=== PATIENT | female | born 1930 | race Caucasian/White ===

== ENCOUNTER → 2018-11-13 | Outpatient (CLI) | payer OTHER ==
[~2018-11-13] MED LIST: ALPR.25 PO; AMLO5 PO; ATEN100 PO; Bactrim Ds Tab1 EACH PO; CEFP200 PO; CIPR500 PO; LISI20 PO; OMEP20ER PO; POTCHL10ER PO; TERB250 PO
== END | disposition home or self-care (01) ==
LOC: LAB SHORT 13:21 → LAB 13:21
DX: R35.0 Frequency of micturition (principal)
CPT/HCPCS: 87077; 87086; 87186

== ENCOUNTER 2019-04-05 13:51 | Emergency (ER) | payer OTHER ==
[~2019-04-05] VITALS: Ht 157.5 cm; Wt 45.4 kg
[2019-04-05 15:04] LABS: BASOPHILS ABSOLUTE AUTO 0.06 K/mm3 (0.00-0.23); BASOPHILS PERCENT AUTO 1 % (0-2); EOSINOPHILS ABSOLUTE AUTO 0.13 K/mm3 (0.00-0.68); EOSINOPHILS PERCENT AUTO 2 % (0-6); Hemoglobin 12.6 g/dL (11.5-16.0); IMMATURE GRAN ABSOLUTE AUTO 0.04 K/mm3 (0.00-0.10); IMMATURE GRAN PERCENT AUTO 1 % (0-1); LYMPHOCYTES ABSOLUTE AUTO 1.48 K/mm3 (0.84-5.20); LYMPHOCYTES PERCENT AUTO 18 % (21-46); MONOCYTES ABSOLUTE AUTO 0.94 K/mm3 (0.16-1.47); MONOCYTES PERCENT AUTO 12 % (4-13); Mean Corpuscular HGB 31.1 pg (26.0-34.0); Mean Corpuscular HGB Conc 32.3 g/dL (31.5-36.5); Mean Corpuscular Volume 96 fL (80-100); Mean Platelet Volume 9.8 fL (9.1-12.4); NEUTROPHILS PERCENT AUTO 68 % (41-73); Platelet Count 348 K/mm3 (150-400); RDW Coefficient Variation 12.8 % (11.7-14.2); RDW Standard Deviation 45.2 fL (35.1-46.3); Red Blood Cell Count 4.05 M/mm3 (3.80-5.20); White Blood Cell Count 8.15 K/mm3 (4.00-11.30)
[2019-04-05 15:22] LABS: Albumin, Blood 3.4 g/dL (3.4-5.0); Albumin/Globulin Ratio 0.8 (0.8-1.8); Bilirubin, Total 0.2 mg/dL (0.1-1.0); Bun/Creatinine Ratio 19.8 (12.0-20.0); Calcium, Blood 8.8 mg/dL (8.5-10.1); Creatinine, Blood 0.96 mg/dL (0.40-1.00); Globulin, Blood 4.3 g/dL (2.2-4.0); Potassium, Blood 3.9 mmol/L (3.5-5.5); Total Protein, Blood 7.7 g/dL (6.4-8.2)
== END 2019-04-05 16:50 | disposition home or self-care (01) ==
LOC: ER 13:51
PROVIDERS: Physician Assistant
DX: K92.1 Melena (principal); R18.8 Other ascites; K62.89 Other specified diseases of anus and rectum; I10 Essential (primary) hypertension; Z88.5 Allergy status to narcotic agent; Z79.899 Other long term (current) drug therapy
CPT/HCPCS: 36415; 80053; 82272; 85025; 86850; 86900; 86901; 99283

== ENCOUNTER → 2020-02-11 | Outpatient (CLI) | payer OTHER ==
[2020-02-11 14:26] LABS: BASOPHILS ABSOLUTE AUTO 0.07 K/mm3 (0.00-0.23); BASOPHILS PERCENT AUTO 0 % (0-2); EOSINOPHILS ABSOLUTE AUTO 0.08 K/mm3 (0.00-0.68); EOSINOPHILS PERCENT AUTO 1 % (0-6); Hematocrit 34.8 % (33.0-51.0); Hemoglobin 11.5 g/dL (11.5-16.0); IMMATURE GRAN ABSOLUTE AUTO 0.08 K/mm3 (0.00-0.10); IMMATURE GRAN PERCENT AUTO 1 % (0-1); LYMPHOCYTES ABSOLUTE AUTO 1.62 K/mm3 (0.84-5.20); LYMPHOCYTES PERCENT AUTO 10 % (21-46); MONOCYTES ABSOLUTE AUTO 1.33 K/mm3 (0.16-1.47); MONOCYTES PERCENT AUTO 8 % (4-13); Mean Corpuscular HGB 31.6 pg (26.0-34.0); Mean Corpuscular Volume 96 fL (80-100); Mean Platelet Volume 9.8 fL (9.1-12.4); NEUTROPHILS ABSOLUTE AUTO 13.95 K/mm3 (1.96-9.15); NEUTROPHILS PERCENT AUTO 81 % (41-73); Platelet Count 327 K/mm3 (150-400); RDW Coefficient Variation 13.3 % (11.7-14.2); RDW Standard Deviation 46.9 fL (35.1-46.3); Red Blood Cell Count 3.64 M/mm3 (3.80-5.20); White Blood Cell Count 17.13 K/mm3 (4.00-11.30)
[2020-02-11 14:37] LABS: Albumin, Blood 3.1 g/dL (3.4-5.0); Albumin/Globulin Ratio 0.7 (0.8-1.8); Bilirubin, Total 0.5 mg/dL (0.1-1.0); Bun/Creatinine Ratio 14.2 (12.0-20.0); Calcium, Blood 9.3 mg/dL (8.5-10.1); Creatinine, Blood 1.34 mg/dL (0.40-1.00); Globulin, Blood 4.7 g/dL (2.2-4.0); Potassium, Blood 3.4 mmol/L (3.5-5.5); Total Protein, Blood 7.8 g/dL (6.4-8.2)
== END | disposition home or self-care (01) ==
LOC: LAB SHORT 14:23 → LAB EV 14:23
PROVIDERS: Physician Assistant Medical
DX: K92.1 Melena (principal)
CPT/HCPCS: 80053; 85025

== ENCOUNTER → 2020-03-16 | Outpatient (CLI) | payer OTHER ==
[2020-03-18 11:00] LABS: Stool Occult Bld Immuno 1 Positive (NEGATIVE)
== END | disposition home or self-care (01) ==
LOC: LAB 14:00 → LAB SHORT 14:00
PROVIDERS: Family Medicine
DX: D64.9 Anemia, unspecified (principal)
CPT/HCPCS: 82274

== ENCOUNTER 2020-04-18 14:33 | Observation (INO) | payer OTHER ==
[~2020-04-18] VITALS: Ht 154.9 cm; Wt 43.2 kg
[2020-04-18 15:10] LABS: BASOPHILS ABSOLUTE AUTO 0.07 K/mm3 (0.00-0.23); BASOPHILS PERCENT AUTO 1 % (0-2); EOSINOPHILS ABSOLUTE AUTO 0.22 K/mm3 (0.00-0.68); EOSINOPHILS PERCENT AUTO 2 % (0-6); Hematocrit 38.6 % (33.0-51.0); Hemoglobin 12.7 g/dL (11.5-16.0); IMMATURE GRAN ABSOLUTE AUTO 0.04 K/mm3 (0.00-0.10); IMMATURE GRAN PERCENT AUTO 0 % (0-1); LYMPHOCYTES ABSOLUTE AUTO 1.63 K/mm3 (0.84-5.20); LYMPHOCYTES PERCENT AUTO 15 % (21-46); MONOCYTES ABSOLUTE AUTO 1.12 K/mm3 (0.16-1.47); MONOCYTES PERCENT AUTO 10 % (4-13); Mean Corpuscular HGB 31.1 pg (26.0-34.0); Mean Corpuscular HGB Conc 32.9 g/dL (31.5-36.5); Mean Corpuscular Volume 94 fL (80-100); Mean Platelet Volume 9.8 fL (9.1-12.4); NEUTROPHILS ABSOLUTE AUTO 8.05 K/mm3 (1.96-9.15); NEUTROPHILS PERCENT AUTO 72 % (41-73); Platelet Count 338 K/mm3 (150-400); RDW Coefficient Variation 12.4 % (11.7-14.2); RDW Standard Deviation 43.3 fL (35.1-46.3); Red Blood Cell Count 4.09 M/mm3 (3.80-5.20); White Blood Cell Count 11.13 K/mm3 (4.00-11.30)
[2020-04-18 15:15] LABS: Source, Urine Catheter
[2020-04-18 15:20] LABS: Albumin, Blood 3.2 g/dL (3.4-5.0); Albumin/Globulin Ratio 0.7 (0.8-1.8); Bilirubin, Total 0.3 mg/dL (0.1-1.0); Bun/Creatinine Ratio 11.4 (12.0-20.0); Calcium, Blood 9.1 mg/dL (8.5-10.1); Creatinine, Blood 1.05 mg/dL (0.40-1.00); Globulin, Blood 4.4 g/dL (2.2-4.0); Potassium, Blood 3.2 mmol/L (3.5-5.5); Total Protein, Blood 7.6 g/dL (6.4-8.2)
[2020-04-18 15:27] LABS: Appearance, Urine Hazy (Clear); Bilirubin, Urine Neg (Neg); Blood, Urine 5+ (Neg); Color, Urine Yellow (P-Yellow); Glucose Qualitative, Urine Neg (Neg); Ketones, Urine Neg (Neg); Leukocyte Esterase, Urine 3+ (Neg); Nitrite, Urine Pos (Neg); Protein, Urine 3+ (Neg); Urobilinogen, Urine NORM (Normal)
[2020-04-18 15:38] LABS: Bacteria Many /hpf; Squamous Epithelial Cells Few /hpf (Few); White Blood Cells, Urine TNTC /hpf (0-5)
[2020-04-18] MEDS ORDERED: CEFD300 PO (16:23)
[2020-04-18 23:32] LABS: Hematocrit 37.1 % (33.0-51.0); Hemoglobin 12.3 g/dL (11.5-16.0)
--- NOTE | 2020-04-19 01:37 | NUR ---
PATIENT ARRIVED TO ROOM 306 AT 2200. SHE IS ALERT AND ORIENTED TO SELF, AND FAMILY. WAS ABLE TO TRANSFER FROM STRETCHER TO BED WITH MINIMAL ASSISTANCE. THE PATIENT HAS RECENTLY BECOME AGITATED THAT HER IS NOT WITH HER AND REFUSES TO SETTLE DOWN UNLESS SHE EITHER GETS TO SEE HIM OR TALK TO HIM ON THE PHONE. PATIENT HAS BEEN GETTING OUT OF BED AND PULLED OUT HER IV. NEW IV PLACED AND PATIENT MEDICATED WITH ATIVAN TO HELP WITH AGITATION. WILL CONTINUE TO MONITOR.
--- NOTE | 2020-04-19 02:53 | NUR ---
PHYSICIAN COMMUNICATION CONTACTED EXTRUSION FORMER PHYSICIAN, DR GARCIA, TO NOTIFY HIM THAT THE PATIENT HAD AN ORDER FOR 0.5-1 MG IV ATIVAN PRN Q10 MINUTES AND TO SEE HOW OFTEN HE WANTED IT TO BE GIVEN ON THE MEDICAL FLOOR. DR GARCIA SAID TO CANCEL THE ORDER.
--- NOTE | 2020-04-19 06:14 | NUR ---
SHIFT SUMMARY PATIENT VERY CONFUSED AND ORIENTED ONLY TO SELF AND FAMILY. SHE ALTERNATED BETWEEN BEING PLEASANT AND AGITATED OVER NOT KNOWING WHERE HER WAS. AFTER BEING MEDICATED WITH ATIVAN, THE PATIENT WAS ABLE TO CALM DOWN AND GET TO SLEEP. IV PATENT AND INFUSING WITH NORMAL SALINE AT 75 ML/HR. BED IN LOWEST POSITION WITH WHEELS LOCKED AND ALARM ON. CALL LIGHT WITHIN REACH. REPORT GIVEN TO ONCOMING RN.
[2020-04-19 08:03] LABS: BASOPHILS ABSOLUTE AUTO 0.07 K/mm3 (0.00-0.23); BASOPHILS PERCENT AUTO 1 % (0-2); EOSINOPHILS ABSOLUTE AUTO 0.14 K/mm3 (0.00-0.68); EOSINOPHILS PERCENT AUTO 1 % (0-6); Hematocrit 31.8 % (33.0-51.0); Hemoglobin 10.4 g/dL (11.5-16.0); IMMATURE GRAN ABSOLUTE AUTO 0.03 K/mm3 (0.00-0.10); IMMATURE GRAN PERCENT AUTO 0 % (0-1); LYMPHOCYTES ABSOLUTE AUTO 1.78 K/mm3 (0.84-5.20); LYMPHOCYTES PERCENT AUTO 16 % (21-46); MONOCYTES ABSOLUTE AUTO 1.26 K/mm3 (0.16-1.47); MONOCYTES PERCENT AUTO 12 % (4-13); Mean Corpuscular HGB 30.8 pg (26.0-34.0); Mean Corpuscular HGB Conc 32.7 g/dL (31.5-36.5); Mean Corpuscular Volume 94 fL (80-100); Mean Platelet Volume 9.4 fL (9.1-12.4); NEUTROPHILS ABSOLUTE AUTO 7.56 K/mm3 (1.96-9.15); NEUTROPHILS PERCENT AUTO 70 % (41-73); Platelet Count 270 K/mm3 (150-400); RDW Coefficient Variation 12.5 % (11.7-14.2); RDW Standard Deviation 43.2 fL (35.1-46.3); Red Blood Cell Count 3.38 M/mm3 (3.80-5.20); White Blood Cell Count 10.84 K/mm3 (4.00-11.30)
[2020-04-19 08:22] LABS: Albumin, Blood 2.7 g/dL (3.4-5.0); Albumin/Globulin Ratio 0.8 (0.8-1.8); Bilirubin, Total 0.4 mg/dL (0.1-1.0); Bun/Creatinine Ratio 12.6 (12.0-20.0); Calcium, Blood 8.4 mg/dL (8.5-10.1); Creatinine, Blood 0.95 mg/dL (0.40-1.00); Globulin, Blood 3.6 g/dL (2.2-4.0); Potassium, Blood 3.6 mmol/L (3.5-5.5); Total Protein, Blood 6.3 g/dL (6.4-8.2)
[2020-04-19 15:53] LABS: Hematocrit 33.6 % (33.0-51.0); Hemoglobin 11.3 g/dL (11.5-16.0)
--- NOTE | 2020-04-19 16:51 | NUR ---
PATIENT A/O TO SELF AND FAMILY ONLY. VERY ANXIOUS TODAY ABOUT BEING HERE. GI DR TAYLOR CONSULTING AND PATIENT WILL HAVE A COLONOSCOPY TOMORROW DUE TO RECURRENT GI BLEED. PATIENT DID NOT HAVE ANY BLEEDING THIS SHIFT. VSS, ON RA. UP WITH FWW AND [address] ASSIST. F[address] PRECAUTIONS IN PLACE. SKIN INTACT. INCONTINENT OF URINE. DENIES ANY ABDOMINAL PAIN OR NAUSEA, TOLERATING CLEAR LIQUID DIET. DR. TAYLOR TO PLACE FURTHER ORDERS RELATING TO PREP FOR COLONOSCOPY TOMORROW.
[2020-04-19 23:14] LABS: Hematocrit 39.6 % (33.0-51.0); Hemoglobin 12.9 g/dL (11.5-16.0)
[2020-04-19 23:28] LABS: Influenza A, PCR Negative (NEGATIVE); Influenza B, PCR Negative (NEGATIVE); Resp Syncytial Virus, PCR Negative (NEGATIVE); SARS-Cov-2 (COVID-19) PCR, MMC Negative (NEGATIVE)
--- NOTE | 2020-04-20 04:41 | NUR ---
CHARRER SUMMARY A/O TO SELF AND FAMILY ONLY. PT HAS BEEN CALLING OUT FOR HER MOST OF THE NIGHT. SUPREP BOWEL TX COMPLETED THIS SHIFT WITH MULTIPLE EPISODES OF INCONTINENT LOOSE STOOLS. PT TO RECIEVE COLONOSCOPY THIS AM, CURRENTLY NPO EXCEPT FOR WATER. DENIES PAIN OR SOB. NO ACUTE CHANGES AT THIS TIME. BED IN LOWEST POSITION WITH CALL LIGHT IN REACH. WILL CONTINUE TO MONITOR AND REPORT TO ONCOMING RN.
--- NOTE | 2020-04-20 15:56 | NUR ---
04/20/20 1556 Ji Stratton History, Chart, Medications and Allergies reviewed before start of procedure.MONITOR INTACT WITH CONTINUOUS PULSE OXIMETRY AND INTERMITTENT BP.3-LEAD EKG REVIEWED WITH PHYSICIAN PRIOR TO START OF PROCEDURE.O2 VIA N/C INTACT THROUGHOUT SEDATION/PROCEDURE. PATIENT DETERMINED TO BE ASA APPROPRIATE FOR PROPOFOL SEDATION PRIOR TO START OF PROCEDURE BY DR. TAYLOR.
--- NOTE | 2020-04-20 15:58 | NUR ---
Patient states colon prep results clear. History, Chart, Medications and Allergies reviewed before start of procedure. Patient confirms NPO status and agrees with scheduled surgery. Pre-Op teaching done. Pt verbalizes understanding. Hx dementia, pt talkative, anxious.
--- NOTE | 2020-04-20 17:51 | NUR ---
PATIENT BACK TO ROOM FROM COLONOSCOPY. VSS, ON RA. PATIENT IS AWAKE AND TALKING TO STAFF. CARDIAC DIET ORDERED. FALL PRECAUTIONS IN PLACE.
--- NOTE | 2020-04-21 05:00 | NUR ---
PT AWOKE VERY CONFUSED, ANXIOUS AND IMPULSIVE AGAIN. SHE WAS FOUND TO HAVE DC'D HER OWN IV. STAFF ATTEMPTING TO CALM PT AND THEN WILL REPLACE IV IF ABLE FOR 0900 IV ABX.
--- NOTE | 2020-04-21 06:20 | NUR ---
SUMMARY: PT ORIENTED TO SELF AND FAMILY ONLY. SHE'S VERY [place], FORGETFUL, IMPULSIVE AND ANXIOUS WHEN AWAKE. SHE IS DIFFICULT TO REDIRECT AND DOESN'T REORIENT DESPITE REMINDERS. BED ALARM ON FOR FALL RISK. XANAX RECIEVED AT HS WHICH HELPED CALM PT AND PROMOTE SLEEP/REST BUT SHE AWOKE AGAIN THIS AM AGGITATED AND PULLED HER OWN IV OUT. PT HASN'T ALLOWED STAFF TO REPLACE IT AT THIS TIME DESPITE ENCOURAGEMENT AND DOESN'T COMPREHEND NEED FOR IV FOR ABX/MEDS. WILL ENSURE DAY STAFF IS AWARE. SHE'S DENIED PAIN/COMPLAINTS. ATTENDS CHANGED PRN FOR INCONTINENCE. PT IS SBA OOB W/FWW BUT REPOSITIONS SELF IN BED. NO EVIDENCE GI BLEEDING BUT PT DIDN'T HAVE BM THIS SHIFT. NO ACUTE CHANGES, VSS/AFEBRILE. WCTM AND REPORT TO DAY RN.
[2020-04-21 06:33] LABS: BASOPHILS ABSOLUTE AUTO 0.07 K/mm3 (0.00-0.23); BASOPHILS PERCENT AUTO 1 % (0-2); EOSINOPHILS ABSOLUTE AUTO 0.24 K/mm3 (0.00-0.68); EOSINOPHILS PERCENT AUTO 2 % (0-6); Hematocrit 33.2 % (33.0-51.0); Hemoglobin 10.9 g/dL (11.5-16.0); IMMATURE GRAN PERCENT AUTO 1 % (0-1); LYMPHOCYTES ABSOLUTE AUTO 2.02 K/mm3 (0.84-5.20); LYMPHOCYTES PERCENT AUTO 19 % (21-46); MONOCYTES ABSOLUTE AUTO 1.06 K/mm3 (0.16-1.47); MONOCYTES PERCENT AUTO 10 % (4-13); Mean Corpuscular HGB Conc 32.8 g/dL (31.5-36.5); Mean Corpuscular Volume 94 fL (80-100); Mean Platelet Volume 9.7 fL (9.1-12.4); NEUTROPHILS ABSOLUTE AUTO 7.42 K/mm3 (1.96-9.15); NEUTROPHILS PERCENT AUTO 68 % (41-73); Platelet Count 299 K/mm3 (150-400); RDW Coefficient Variation 12.5 % (11.7-14.2); RDW Standard Deviation 43.1 fL (35.1-46.3); Red Blood Cell Count 3.52 M/mm3 (3.80-5.20); White Blood Cell Count 10.91 K/mm3 (4.00-11.30)
[2020-04-21 06:57] LABS: Alanine Aminotransfer (ALT/SGP 9 U/L (12-78); Albumin, Blood 2.8 g/dL (3.4-5.0); Albumin/Globulin Ratio 0.7 (0.8-1.8); Alk Phos 72 U/L (50-136); Anion Gap 7 mmol/L (6-16); Aspartate Aminotrans (AST/SGOT 17 U/L (12-37); Bilirubin, Total 0.5 mg/dL (0.1-1.0); Blood Urea Nitrogen 15 mg/dL (8-24); Bun/Creatinine Ratio 16.3 (12.0-20.0); CO2, Blood 24 mmol/L (21-32); Calcium, Blood 9.2 mg/dL (8.5-10.1); Chloride, Blood 110 mmol/L (98-108); Creatinine, Blood 0.92 mg/dL (0.40-1.00); Globulin, Blood 4.1 g/dL (2.2-4.0); Glomerular Filtration Rate >60 (60-); Glucose, Blood 116 mg/dL (70-99); Potassium, Blood 3.1 mmol/L (3.5-5.5); Sodium, Blood 141 mmol/L (136-145); Total Protein, Blood 6.9 g/dL (6.4-8.2)
[2020-04-21] MEDS ORDERED: CEFD300 PO (14:18)
[2020-04-21] MEDS ORDERED: MIRALAX17 GM PO (14:19)
--- NOTE | 2020-04-21 14:46 | NUR ---
NOTED POTASSIUM 3.1, CALLED DR NAVAS, HE ORDERED OT DOSE 40MEQ POTASSIUM PRIOR TO DISCHARGE
--- NOTE | 2020-04-21 15:34 | NUR ---
DISCHARGE SUMMARY KEENAN HAD LOW POTASSIUM THIS MORNING OF 3.1, DR NAVAS GAVE VERBAL ORDER FOR 40MEQ PO KCL PRIOR TO DC. PT INCONTINENT IN BRIEF, CHANGED. UP TO CHAIR FOR BREAKFAST. PT VERY CONFUSED. AT BEDSIDE. NO BM THIS SHIFT. SPOKE TO DAUGHTER ON THE PHONE. PT HAD DECLINED TO HAVE PIV REPLACED THIS MORNING, SO NO PIV TO REMOVE. WENT OVER PAPERWORK WITH . MEDS WERE FAXED TO [facility] AND TEACHING DONE WITH . DENIED PAIN. TOOK MEDS PRESCRIBED. WHEELED OUT TO CAR BY CASHIER GREETER. ATTEMPTED TO MAKE F/U WITH DR DAVALOS, THEIR OFFICE STATES THEY WILL CALL PT TO SCHEDULE. [facility] WILL CONTACT PT TO MAKE F/U PCP APPT
== END 2020-04-21 15:16 | disposition home or self-care (01) ==
LOC: ER 14:33 → MEDS 14:34
PROVIDERS: Emergency Medicine; Internal Medicine; Internal Medicine Gastroenterology; ADMIT Internal Medicine
DX: K62.5 Hemorrhage of anus and rectum (principal); K55.9 Vascular disorder of intestine, unspecified; D12.3 Benign neoplasm of transverse colon; D12.2 Benign neoplasm of ascending colon; K57.30 Diverticulosis of large intestine without perforation or abscess without bleeding; K64.4 Residual hemorrhoidal skin tags; K56.2 Volvulus; K62.89 Other specified diseases of anus and rectum; B19.20 Unspecified viral hepatitis C without hepatic coma; D62 Acute posthemorrhagic anemia; N39.0 Urinary tract infection, site not specified; E87.6 Hypokalemia; N20.0 Calculus of kidney; H91.90 Unspecified hearing loss, unspecified ear; I10 Essential (primary) hypertension; F03.90 Unspecified dementia, unspecified severity, without behavioral disturbance, psychotic disturbance, mood disturbance, and anxiety; K21.9 Gastro-esophageal reflux disease without esophagitis; Z86.010 Personal history of colon polyps; Z88.5 Allergy status to narcotic agent; Z79.899 Other long term (current) drug therapy; Z20.828 Contact with and (suspected) exposure to other viral communicable diseases; Z23 Encounter for immunization; Z86.73 Personal history of transient ischemic attack (TIA), and cerebral infarction without residual deficits
CPT/HCPCS: 0241U; 36415; 51798; 80053; 81001; 85014; 85018; 85025; 87077; 87086; 87186; 93005; 93010; 96365; 96375; 99284-25; A9270; J0696; J2060; J2704; J7030; J7120

== ENCOUNTER → 2020-05-29 | Outpatient (CLI) | payer OTHER ==
[~2020-05-29] MED LIST changes: +CEFD300 PO; +CEPH500 PO; +DOCU100 PO; +DONE5 PO; +EUTHYROX88 MCG PO; +MIRALAX17 GM PO; +OXYB5 PO
[2020-05-29 19:13] LABS: Source, Urine Clean Catch
[2020-05-29 19:47] LABS: Appearance, Urine Hazy (Clear); Bilirubin, Urine Neg (Neg); Blood, Urine 1+ (Neg); Color, Urine Yellow (P-Yellow); Glucose Qualitative, Urine Neg (Neg); Ketones, Urine Neg (Neg); Leukocyte Esterase, Urine 1+ (Neg); Nitrite, Urine Neg (Neg); Protein, Urine 3+ (Neg); Urobilinogen, Urine NORM (Normal)
[2020-05-29 20:01] LABS: Bacteria Many /hpf; Red Blood Cells, Urine 0-2 /hpf (0-2); Squamous Epithelial Cells Mod /hpf (Few)
== END | disposition home or self-care (01) ==
LOC: LAB SHORT 19:10 → LAB 19:10
PROVIDERS: Family Medicine
DX: Z48.816 Encounter for surgical aftercare following surgery on the genitourinary system (principal); Z90.5 Acquired absence of kidney
CPT/HCPCS: 81001; 87077; 87086; 87186

== ENCOUNTER 2020-06-01 19:57 | Day surgery (SDC) | payer OTHER ==
[~2020-06-01] VITALS: Ht 157.5 cm; Wt 45.4 kg
[~2020-06-01 19:57] MED LIST changes: -CEPH500 PO; -DOCU100 PO; -DONE5 PO; -EUTHYROX88 MCG PO; -OXYB5 PO
[2020-06-01] MEDS ORDERED: DONE5 PO (20:04)
[2020-06-01] MEDS ORDERED: OXYB5 PO (20:04)
[2020-06-01] MEDS ORDERED: EUTHYROX88 MCG PO (20:05)
[2020-06-01 20:15] LABS: BASOPHILS ABSOLUTE AUTO 0.06 K/mm3 (0.00-0.23); BASOPHILS PERCENT AUTO 1 % (0-2); EOSINOPHILS ABSOLUTE AUTO 0.24 K/mm3 (0.00-0.68); EOSINOPHILS PERCENT AUTO 3 % (0-6); Hematocrit 37.8 % (33.0-51.0); Hemoglobin 11.8 g/dL (11.5-16.0); IMMATURE GRAN ABSOLUTE AUTO 0.08 K/mm3 (0.00-0.10); IMMATURE GRAN PERCENT AUTO 1 % (0-1); LYMPHOCYTES ABSOLUTE AUTO 1.94 K/mm3 (0.84-5.20); LYMPHOCYTES PERCENT AUTO 22 % (21-46); MONOCYTES ABSOLUTE AUTO 0.88 K/mm3 (0.16-1.47); MONOCYTES PERCENT AUTO 10 % (4-13); Mean Corpuscular HGB 30.3 pg (26.0-34.0); Mean Corpuscular HGB Conc 31.2 g/dL (31.5-36.5); Mean Corpuscular Volume 97 fL (80-100); Mean Platelet Volume 9.4 fL (9.1-12.4); NEUTROPHILS ABSOLUTE AUTO 5.62 K/mm3 (1.96-9.15); NEUTROPHILS PERCENT AUTO 64 % (41-73); Platelet Count 453 K/mm3 (150-400); RDW Coefficient Variation 12.7 % (11.7-14.2); RDW Standard Deviation 45.1 fL (35.1-46.3); Red Blood Cell Count 3.89 M/mm3 (3.80-5.20); White Blood Cell Count 8.82 K/mm3 (4.00-11.30)
[2020-06-01 20:36] LABS: Alanine Aminotransfer (ALT/SGP 10 U/L (12-78); Albumin, Blood 3.7 g/dL (3.4-5.0); Albumin/Globulin Ratio 0.9 (0.8-1.8); Alk Phos 66 U/L (50-136); Anion Gap 6 mmol/L (6-16); Aspartate Aminotrans (AST/SGOT 12 U/L (12-37); Bilirubin, Total 0.3 mg/dL (0.1-1.0); Blood Urea Nitrogen 22 mg/dL (8-24); Bun/Creatinine Ratio 23.6 (12.0-20.0); CO2, Blood 25 mmol/L (21-32); Calcium, Blood 9.9 mg/dL (8.5-10.1); Chloride, Blood 108 mmol/L (98-108); Creatinine, Blood 0.93 mg/dL (0.40-1.00); Globulin, Blood 4.3 g/dL (2.2-4.0); Glomerular Filtration Rate >60 (60-); Glucose, Blood 128 mg/dL (70-99); Potassium, Blood 3.6 mmol/L (3.5-5.5); Sodium, Blood 139 mmol/L (136-145); Troponin I <0.015 ng/mL (0.000-0.040)
[2020-06-01] MEDS ORDERED: DOCU100 PO (20:56)
[2020-06-01 23:13] LABS: Influenza A, PCR Negative (NEGATIVE); Influenza B, PCR Negative (NEGATIVE); Resp Syncytial Virus, PCR Negative (NEGATIVE); SARS-Cov-2 (COVID-19) PCR, MMC Negative (NEGATIVE)
--- NOTE | 2020-06-01 23:34 | NUR ---
SPOKE TO DR TAYLOR IN PERSON AND DR MONTGOMERY ON THE PHONE REGAURDING SEDATION PLAN. PLAN TO PROCEED WITH DEEP SEDATION PROPOFOL PER DR TAYLOR AND DR MONTGOMERY. PATIENT LAST ATE SOLID FOOD APPROX [phone] TODAY. NPO STATUS WAS DISCUSSED WITH DR TAYLOR AND DR MONTGOMERY. History, Chart, Medications and Allergies reviewed before start of procedure.
--- NOTE | 2020-06-01 23:47 | NUR ---
06/01/20 2347 Meaghan Burgess MONITOR INTACT WITH CONTINUOUS PULSE OXIMETRY AND INTERMITTENT BP. 3-LEAD EKG REVIEWED WITH PHYSICIAN PRIOR TO START OF PROCEDURE.
--- NOTE | 2020-06-02 00:45 | NUR ---
CHANGED ATTENDS. Discharge instructions reviewed with patient and her , Chris, and daughter, Mary Kay Patient verbalizes understanding to chew food well and slowly. verbalizes understanding of written and verbalized discharge instructions. Copy given to patient to take home. Patient States Post-Procedure ride home has been arranged with her daughter.
--- NOTE | 2020-06-02 01:03 | NUR ---
1150- Assisted patient in getting dressed. Her top from home was soiled, so she decided to keep her hospital gown on. Assisted her in putting on her pants. VSS. NO C/O VERBALIZED. DENIES PAIN. UP TO W/C WITH 1 PERSON ASSIST. 1155- TRANSFER TO CAR VIA W/C. DAUGHTER IN [place]URNER'S SEAT.
== END 2020-06-02 01:03 | disposition home or self-care (01) ==
LOC: ER 19:57 → ORSCMMR 23:31
PROVIDERS: Emergency Medicine; Internal Medicine Gastroenterology
PROC: 0DB58ZX Excision of Esophagus, Via Natural or Artificial Opening Endoscopic, Diagnostic (ICD-10-PCS; principal; 2020-06-01 23:30)
PROC: 0D758ZZ Dilation of Esophagus, Via Natural or Artificial Opening Endoscopic (ICD-10-PCS; principal; 2020-06-01 23:30)
DX: R13.0 Aphagia (principal); K22.2 Esophageal obstruction; K44.9 Diaphragmatic hernia without obstruction or gangrene; F03.90 Unspecified dementia, unspecified severity, without behavioral disturbance, psychotic disturbance, mood disturbance, and anxiety; I10 Essential (primary) hypertension; Z79.899 Other long term (current) drug therapy; Z20.822 Contact with and (suspected) exposure to COVID-19; Z88.5 Allergy status to narcotic agent; Z88.8 Allergy status to other drugs, medicaments and biological substances
CPT/HCPCS: 0241U; 71045; 80053; 83880; 84484; 85025; 88305; 88312; 93005; 93010; 96374-59; 99285-25; A9270; C1726; J2405; J2704; J7120

== ENCOUNTER 2020-06-11 13:19 | Emergency (ER) | payer OTHER ==
[~2020-06-11] VITALS: Ht 162.6 cm; Wt 54.4 kg
[~2020-06-11 13:19] MED LIST changes: +DOCU100 PO; +DONE5 PO; +EUTHYROX88 MCG PO; +OXYB5 PO
[2020-06-11 14:12] LABS: BASOPHILS ABSOLUTE AUTO 0.07 K/mm3 (0.00-0.23); BASOPHILS PERCENT AUTO 1 % (0-2); EOSINOPHILS ABSOLUTE AUTO 0.09 K/mm3 (0.00-0.68); EOSINOPHILS PERCENT AUTO 1 % (0-6); Hematocrit 33.6 % (33.0-51.0); Hemoglobin 10.7 g/dL (11.5-16.0); IMMATURE GRAN ABSOLUTE AUTO 0.06 K/mm3 (0.00-0.10); IMMATURE GRAN PERCENT AUTO 1 % (0-1); LYMPHOCYTES PERCENT AUTO 9 % (21-46); MONOCYTES ABSOLUTE AUTO 1.22 K/mm3 (0.16-1.47); MONOCYTES PERCENT AUTO 10 % (4-13); Mean Corpuscular HGB 30.9 pg (26.0-34.0); Mean Corpuscular HGB Conc 31.8 g/dL (31.5-36.5); Mean Corpuscular Volume 97 fL (80-100); Mean Platelet Volume 10.1 fL (9.1-12.4); NEUTROPHILS ABSOLUTE AUTO 9.59 K/mm3 (1.96-9.15); NEUTROPHILS PERCENT AUTO 79 % (41-73); Platelet Count 278 K/mm3 (150-400); RDW Coefficient Variation 13.5 % (11.7-14.2); RDW Standard Deviation 47.9 fL (35.1-46.3); Red Blood Cell Count 3.46 M/mm3 (3.80-5.20); White Blood Cell Count 12.13 K/mm3 (4.00-11.30)
[2020-06-11 14:29] LABS: Albumin, Blood 3.1 g/dL (3.4-5.0); Albumin/Globulin Ratio 0.8 (0.8-1.8); Bilirubin, Total 0.5 mg/dL (0.1-1.0); Bun/Creatinine Ratio 28.7 (12.0-20.0); Calcium, Blood 9.3 mg/dL (8.5-10.1); Creatinine, Blood 1.22 mg/dL (0.40-1.00); Globulin, Blood 3.7 g/dL (2.2-4.0); Potassium, Blood 3.3 mmol/L (3.5-5.5); Total Protein, Blood 6.8 g/dL (6.4-8.2)
[2020-06-11 14:45] LABS: Source, Urine Catheter
[2020-06-11 14:54] LABS: Appearance, Urine Cloudy (Clear); Bilirubin, Urine Neg (Neg); Blood, Urine 1+ (Neg); Color, Urine Yellow (P-Yellow); Glucose Qualitative, Urine Neg (Neg); Ketones, Urine 2+ (Neg); Leukocyte Esterase, Urine 2+ (Neg); Nitrite, Urine Pos (Neg); Protein, Urine 3+ (Neg); Urobilinogen, Urine 1+ (Normal)
[2020-06-11 15:03] LABS: Amorphous Mod (0-Heavy); Bacteria Many /hpf; Red Blood Cells, Urine Not Seen /hpf (0-2); Squamous Epithelial Cells Few /hpf (Few); White Blood Cells, Urine 25-50 /hpf (0-5)
[2020-06-11] MEDS ORDERED: CEPH500 PO (18:11)
== END 2020-06-11 19:30 | disposition home or self-care (01) ==
LOC: ER 13:19
PROVIDERS: Physician Assistant
DX: N39.0 Urinary tract infection, site not specified (principal); K92.2 Gastrointestinal hemorrhage, unspecified; I10 Essential (primary) hypertension; Z88.5 Allergy status to narcotic agent; Z88.8 Allergy status to other drugs, medicaments and biological substances; Z79.899 Other long term (current) drug therapy
CPT/HCPCS: 36415; 80053; 81001; 82272; 85025; 86850; 86900; 86901; 87077; 87086; 87186; 93005; 93010; 96365-59; 99285-25; J0696; P9612